=== PATIENT | female | born 1945 | race Asian ===

== ENCOUNTER → 2017-03-31 | Outpatient (CLI) | payer OTHER | LOC: BMCIMAGING 15:17 | PROVIDERS: ATTEND Internal Medicine | DX: M17.0 Bilateral primary osteoarthritis of knee (principal) ==

== ENCOUNTER → 2017-05-22 | Outpatient (CLI) | payer OTHER | LOC: BMCIMAGING 13:07 | PROVIDERS: ATTEND Internal Medicine | DX: N85.9 Noninflammatory disorder of uterus, unspecified (principal); Z78.0 Asymptomatic menopausal state; Z79.890 Hormone replacement therapy ==

== ENCOUNTER → 2017-09-07 | Outpatient (CLI) | payer OTHER | LOC: FIMAGING 09:28 | PROVIDERS: ATTEND Orthopaedic Surgery | DX: Z01.818 Encounter for other preprocedural examination (principal); M25.862 Other specified joint disorders, left knee; M25.762 Osteophyte, left knee ==

== ENCOUNTER 2017-10-12 06:01 | Observation (INO) | payer OTHER ==
[~2017-10-12 06:01] MED LIST: ROPIVACAINE 0.2% 80 MG, EPINEPHrine 0.2 MG, KETOROLAC TROMETHAMINE 30 MG, morphINE 10 M... IU ONE; TRANEXAMIC ACID 1,000 MG in NS 100 ML IV ONE
[2017-10-12] MEDS ORDERED: ceFAZolin 2 GM/DEXTROSE 100 ML IV ONE (06:18)
[2017-10-12] MEDS ORDERED: LIDOCAINE 1% 2 ML INJ ID PRN (06:18)
[2017-10-12] MEDS ORDERED: LR 1,000 ML IV ONE ×2 (06:18→06:23)
[2017-10-12] MEDS ORDERED: FAMOTIDINE 20 MG TAB PO ONE (06:18)
[2017-10-12] MEDS ORDERED: ACETAMINOPHEN 325 MG TAB PO ONE (06:18)
--- NOTE | 2017-10-12 06:27 | PDIAF ---
- Diagnosis Diagnosis: left knee djd Code Status: Full Code - Medication Management Discharge Medications: Medications to Continue on Transfer Atorvastatin Calcium [Lipitor 20 mg (*)] 20 mg PO DAILY@12 08/21/17 [Last Taken Unknown] Estradiol [Vivelle-Dot 0.025MG (*)] 0.025 mg TD WeSa@0800 08/21/17 [Last Taken Unknown] Herbals/Supplements -Info Only 1 ea PO DAILY 08/21/17 [Last Taken Unknown] Levothyroxine [Synthroid 50 mcg (*)] 50 mcg PO DAILY06 08/21/17 [Last Taken Unknown] Multivitamins [Multivitamin (*)] 1 each PO DAILY 08/21/17 [Last Taken Unknown] Discharge Medications: Refer to the Discharge Home Medication list for PRN reason. - Orders Services needed: Physical Therapy Diet Recommendation: no restrictions on diet Diet Texture: Regular Texture Diet Activity/Weight Bearing Restrictions: wbat. rom as vent[place]. keep dressing in place unless it becomes saturated. may shower with bandage. seek attn for increasing pain, chest pain, sob, leg pain, drainage or other focal complaint. f/u at two weeks Additional Instructions: TOTAL JOINT ARTHROPLASTY DISCHARGE INSTRUCTIONS 1. Your surgeon follows the [facility] protocol for reducing your risk of DVT (blood clots) following surgery. Medication will be ordered to prevent blood clots. A sudden increase in calf pain and/or swelling could indicate a blood clot in your leg. If this occurs, please call your surgeon or his/her registered medical assistant. An ultrasound of the leg may be necessary to diagnose a blood clot. If you have conditions that make you a higher risk for blood clots, your surgeon may use more aggressive ways to prevent them. Notify your surgeon if you think you are a high risk for blood clots. 2. Wear your white surgical stockings (DEMAR hose) for 2 weeks. This decreases your swelling and may help prevent blood clots. It is ok to remove DEMAR hose at night time to give your legs a break. 3. Swelling and bruising in the surgical leg is common. If you feel that it is excessive, please notify your surgeon. 4. Elevate your surgical leg with the ankle above the hip several times every day. Please keep the leg straight when you elevate by putting pillows under your foot. Do not put pillows under your knee. This will make being able to fully straighten more difficult. This is uncomfortable, but try to do it as much as possible. 5. For total knee replacements use compressive wrap on your knee for 3-5 days after surgery, then you can discontinue it. 6. Use a walker or crutches for 1-2 weeks. Progress your weight-bearing as tolerated. You may start to use a cane when you feel stable and safe. 7. You will receive physical therapy instructions in the hospital. Continue those exercises at home. There are additional exercises in the total joint booklet you were given before surgery. Outpatient physical therapy will begin 7- 10 days after surgery. Please schedule this in advance. 8. Use ice on your knee at least 3-5 times every day for 30 minutes. This helps reduce pain and swelling. Also use it at night before falling asleep. 9. Leave your surgical dressing in place for 2 weeks. Your dressing is water resistant, but not waterproof. Cover it with Saran Wrap or Hafbn-r-Xrah before showering. You may shower as soon as you feel safe entering a shower. If you notice bleeding from your incision 2 or 3 days after surgery, please notify your surgeon. 10. Due to narcotics, decreased activity and altered diet, most patients experience constipation after surgery. Use qqyh-wno-unmkvac stool softeners while you are on narcotics. 11. You may drive a car when you are comfortable bearing weight, have good muscular control of your leg and are off narcotics. This usually occurs 2-4 weeks after surgery, depending on which leg was operated on. 12. If there are questions not addressed here, please refer the [facility] book given for more information. If you still have questions, please contact your surgeon s office. 13. If you have a life-threatening emergency, please call 911 and go to the emergency room immediately. For non-life threatening emergencies, please call your physicians office for advice before going to the emergency room. - Follow Up Care Current Providers and Referrals: Dasia Khan MD [Primary Care Provider] - Samuel Gr MD [Medical Doctor] -
--- NOTE | 2017-10-12 06:27 | PDHPUP ---
History & Physical Update H&P update statement: This history and physical update is based on an assessment of the patient which was completed after admission or registration (within 24 hours), but prior to the surgery/procedure. H&P update: no change in patient's condition since H&P completed
[2017-10-12] MEDS ORDERED: CALCIUM CHLORIDE 1 GM/10 ML INJ ONE (07:03)
[2017-10-12] MEDS ORDERED: THROMBIN (BOVINE) 5,000 UNIT VIAL TP ONE (07:03)
[2017-10-12] MEDS ORDERED: ceFAZolin 1 GM/5 ML SYR ONE ×2 (07:04→07:15)
[2017-10-12] MEDS ORDERED: MIDAZOLAM 2 MG/2 ML VIAL IVP ONE (07:46)
[2017-10-12] MEDS ORDERED: MIDAZOLAM 2 MG/2 ML VIAL ONE (07:46)
--- NOTE | 2017-10-12 07:48 | PDANEPAE ---
ANE Past Medical History - Cardiovascular History Hx Hypertension: No Hx Arrhythmias: No Hx Chest Pain: No Hx Coronary Artery / Peripheral Vascular Disease: No Hx CHF / Valvular Disease: No Hx Palpitations: No - Pulmonary History Hx COPD: No Hx Asthma/Reactive Airway Disease: No Hx Recent Upper Respiratory Infection: No Hx Oxygen in Use at Home: No Hx Sleep Apnea: No Sleep Apnea Screening Result - Last Documented: Negative - Neurologic History Hx Cerebrovascular Accident: No Hx Seizures: No Hx Dementia: No - Endocrine History Hx Diabetes: No Obesity: no - Renal History Hx Renal Disorders: No - Liver History Hx Hepatic Disorders: No - Neurological & Psychiatric Hx Hx Neurological and Psychiatric Disorders: No - Cancer History Hx Cancer: No - Congenital Disorder History Hx Congenital Disorders: No - GI History Hx Gastrointestinal Disorders: No - Other Health History Other Health History: none - Chronic Pain History Chronic Pain: No - Surgical History Prior Surgeries: cataract left eye ANE Review of Systems Review of Systems: - Exercise capacity METS (RN): 4 METS ANE Patient History - Allergies Allergies/Adverse Reactions: Sulfa (Sulfonamide Antibiotics) Allergy (Verified 08/21/17 10:10) Rash - Home Medications Home Medications: Atorvastatin Calcium [Lipitor 20 mg (*)] 20 mg PO DAILY@12 08/21/17 [Last Taken 10/11/17] Estradiol [Vivelle-Dot 0.025MG (*)] 0.025 mg TD WeSa@0800 08/21/17 [Last Taken 10/09/17] Herbals/Supplements -Info Only 1 ea PO DAILY 08/21/17 [Last Taken 10/12/17] Levothyroxine [Synthroid 50 mcg (*)] 50 mcg PO DAILY06 08/21/17 [Last Taken ] Multivitamins [Multivitamin (*)] 1 each PO DAILY 08/21/17 [Last Taken 10/12/17] - NPO status NPO Status: no food or drink >8 hours NPO Since - Liquids (Date): 10/12/17 NPO Since - Liquids (Time): 05:00 NPO Since - Solids (Date): 10/11/17 NPO Since - Solids (Time): 18:00 - Anes Hx Anes Hx: no prior problems - Smoking Hx Smoking Status: Never smoked - Family Anes Hx Family Hx Anesthesia Complications: none ANE Labs/Vital Signs - Vital Signs Blood Pressure: 111/64 Heart Rate: 56 Respiratory Rate: 16 O2 Sat (%): 94 Height: 160.02 cm Weight: 58.967 kg ANE Physical Exam - Airway Neck exam: FROM Mallampati Score: Class 2 Mouth exam: normal dental/mouth exam - Pulmonary Pulmonary: no respiratory distress, no rales or rhonchi, clear to auscultation - Cardiovascular Cardiovascular: regular rate and rhythym, no murmur, rub, or gallop - ASA Status ASA Status: II ANE Anesthesia Plan Anesthesia Plan: spinal Regional Anesthesia: adductor canal FNB
[2017-10-12] MEDS ORDERED: BUPIVACAINE/EPI 0.5% 30 ML SDV ONE (08:00)
[2017-10-12] MEDS ORDERED: PROPOFOL 200 MG/20 ML VIAL ONE (08:01)
[2017-10-12] MEDS ORDERED: LIDOCAINE 2% 5 ML SDV ONE (08:03)
[2017-10-12] MEDS ORDERED: DEXAMETHASONE 4 MG/ML VIAL ONE ×2 (08:03)
[2017-10-12] MEDS ORDERED: fentaNYL 100 MCG/2 ML INJ ONE (08:37)
[2017-10-12] MEDS ORDERED: LIDOCAINE 2% JELLY 5 ML TUBE ONE (08:41)
[2017-10-12] MEDS ORDERED: ONDANSETRON 4 MG/2 ML VIAL ONE (08:53)
[2017-10-12] MEDS ORDERED: ONDANSETRON 4 MG/2 ML VIAL IVP PRN ×2 (09:18→09:55)
[2017-10-12] MEDS ORDERED: fentaNYL 100 MCG/2 ML INJ IVP PRN (09:18)
[2017-10-12] MEDS ORDERED: NALOXONE HCL 0.4 MG/ML INJ IVP PRN (09:18)
[2017-10-12] MEDS ORDERED: ACETAMINOPHEN 500 MG TAB PO PRN (09:18)
[2017-10-12] MEDS ORDERED: MEPERIDINE 25 MG/0.5 ML AMP IVP PRN (09:18)
[2017-10-12] MEDS ORDERED: LR 500 ML IV PRN (09:18)
[2017-10-12] MEDS ORDERED: oxyCODONE IR 5 MG TAB PO PRN ×2 (09:18→09:55)
[2017-10-12] MEDS ORDERED: PROMETHAZINE HCL 25 MG/ML INJ IVP PRN ×2 (09:18→09:55)
[2017-10-12] MEDS ORDERED: MAGNESIUM HYDROXIDE 30 ML UDCUP PO PRN (09:55)
[2017-10-12] MEDS ORDERED: DIPHENOXYLATE/ATROPINE LOMOTIL 1 TAB PO PRN (09:55)
[2017-10-12] MEDS ORDERED: LACTULOSE 20 GM/30 ML UDCUP PO PRN (09:55)
[2017-10-12] MEDS ORDERED: BISACODYL 10 MG SUPP PR PRN (09:55)
[2017-10-12] MEDS ORDERED: ONDANSETRON DISINTEGRATING 4 MG TAB PO PRN (09:55)
[2017-10-12] MEDS ORDERED: POLYETHYLENE GLYCOL 3350 17 GM PKT PO PRN (09:55)
[2017-10-12] MEDS ORDERED: PROMETHAZINE HCL 25 MG SUPPR PR PRN (09:55)
[2017-10-12] MEDS ORDERED: METOCLOPRAMIDE 10 MG/2 ML VIAL IVP PRN (09:55)
[2017-10-12] MEDS ORDERED: diphenhydrAMINE 25 MG CAP PO PRN (09:55)
[2017-10-12] MEDS ORDERED: TEMAZEPAM 15 MG CAP PO PRN (09:55)
[2017-10-12] MEDS ORDERED: CYCLOBENZAPRINE 10 MG TAB PO PRN (09:55)
--- NOTE | 2017-10-12 09:55 | POSTOPPROG ---
Post Op Note Date of Operation: 10/12/17 Surgeon: Samuel Gr Manufacturing Associate: tiffanie Anesthesiologist: shanthi Anesthesia: GET(General Endotracheal), Spinal Pre-op Diagnosis: left knee djd Post-op Diagnosis: same Indication: same Procedure: left tka Inf/Abcess present in the surg proc area at time of surgery?: No Depth: Deep Incisional (Fascial) EBL: 50-100
[2017-10-12] MEDS ORDERED: LR 1,000 ML IV SCH (10:00)
--- NOTE | 2017-10-12 10:49 | POSTANESTH ---
Post Anesthetic Evaluation Cardiovascular Status: Normal, Stable, Similar to Pre-Op Cond Respiratory Status: Normal, Stable, Similar to Pre-op Cond. Level of Consciousness/Mental Status: Can Participate in Eval, Alert and Oriented (No pain on arrival in PACU--apparently, SAB is working at least partially. Adductor canal nerve block performed in PACU.) Pain Control: Adequate, Prn Tx Ordered Nausea/Vomiting Control: Adequate, Prn Tx Ordered Complications Possibly Related to Anesthesia: None Noted
[2017-10-12] MEDS ORDERED: ATORVASTATIN CALCIUM 20 MG TAB PO SCH (12:00)
[2017-10-12] MEDS: TRANEXAMIC ACID 650 MG TAB PO SCH ×2 (12:29→17:39)
[2017-10-12] MEDS: ACETAMINOPHEN 325 MG TAB PO SCH ×3 (13:57→23:21)
[2017-10-12] MEDS: ceFAZolin 2 GM/DEXTROSE 100 ML IV SCH ×2 (13:59→21:31)
[2017-10-12] MEDS: ASPIRIN 325 MG TAB PO SCH (20:20)
[2017-10-12] MEDS: SENNOSIDES/DOCUSATE SODIUM TAB PO SCH (20:21)
[2017-10-12] MEDS: FAMOTIDINE 20 MG TAB PO SCH (20:21)
[2017-10-13] MEDS: TRANEXAMIC ACID 650 MG TAB PO SCH (02:33)
[2017-10-13] MEDS: ACETAMINOPHEN 325 MG TAB PO SCH ×2 (05:45→09:18)
[2017-10-13] MEDS ORDERED: LEVOTHYROXINE 50 MCG TAB PO SCH (06:00)
--- NOTE | 2017-10-13 07:16 | PDIAF ---
- Diagnosis Diagnosis: left knee djd Code Status: Full Code - Medication Management Discharge Medications: Medications to Continue on Transfer Atorvastatin Calcium [Lipitor 20 mg (*)] 20 mg PO DAILY@12 08/21/17 [Last Taken 10/11/17] Estradiol [Vivelle-Dot 0.025MG (*)] 0.025 mg TD WeSa@0800 08/21/17 [Last Taken 10/09/17] Herbals/Supplements -Info Only 1 ea PO DAILY 08/21/17 [Last Taken 10/12/17] Levothyroxine [Synthroid 50 mcg (*)] 50 mcg PO DAILY06 08/21/17 [Last Taken ] Multivitamins [Multivitamin (*)] 1 each PO DAILY 08/21/17 [Last Taken 10/12/17] Aspirin [Aspirin 325 mg (*)] 325 mg PO DAILY tab 10/13/17 [Last Taken Unknown] oxyCODONE IR [Oxycodone Ir (*)] 5 - 10 mg PO Q3HRS PRN #50 tab 10/13/17 [Last Taken Unknown] Discharge Medications: Refer to the Discharge Home Medication list for PRN reason. - Orders Services needed: Physical Therapy Diet Recommendation: no restrictions on diet Diet Texture: Regular Texture Diet Activity/Weight Bearing Restrictions: wbat. rom as [place]. keep dressing in place unless it becomes saturated. may shower with bandage. seek attn for increasing pain, chest pain, sob, leg pain, drainage or other focal complaint. f/u at two weeks Additional Instructions: TOTAL JOINT ARTHROPLASTY DISCHARGE INSTRUCTIONS 1. Your surgeon follows the [facility] protocol for reducing your risk of DVT (blood clots) following surgery. Medication will be ordered to prevent blood clots. A sudden increase in calf pain and/or swelling could indicate a blood clot in your leg. If this occurs, please call your surgeon or his/her academic support assistant. An ultrasound of the leg may be necessary to diagnose a blood clot. If you have conditions that make you a higher risk for blood clots, your surgeon may use more aggressive ways to prevent them. Notify your surgeon if you think you are a high risk for blood clots. 2. Wear your white surgical stockings (DEMAR hose) for 2 weeks. This decreases your swelling and may help prevent blood clots. It is ok to remove DEMAR hose at night time to give your legs a break. 3. Swelling and bruising in the surgical leg is common. If you feel that it is excessive, please notify your surgeon. 4. Elevate your surgical leg with the ankle above the hip several times every day. Please keep the leg straight when you elevate by putting pillows under your foot. Do not put pillows under your knee. This will make being able to fully straighten more difficult. This is uncomfortable, but try to do it as much as possible. 5. For total knee replacements use compressive wrap on your knee for 3-5 days after surgery, then you can discontinue it. 6. Use a walker or crutches for 1-2 weeks. Progress your weight-bearing as tolerated. You may start to use a cane when you feel stable and safe. 7. You will receive physical therapy instructions in the hospital. Continue those exercises at home. There are additional exercises in the total joint booklet you were given before surgery. Outpatient physical therapy will begin 7- 10 days after surgery. Please schedule this in advance. 8. Use ice on your knee at least 3-5 times every day for 30 minutes. This helps reduce pain and swelling. Also use it at night before falling asleep. 9. Leave your surgical dressing in place for 2 weeks. Your dressing is water resistant, but not waterproof. Cover it with Saran Wrap or Ikzce-k-Nexy before showering. You may shower as soon as you feel safe entering a shower. If you notice bleeding from your incision 2 or 3 days after surgery, please notify your surgeon. 10. Due to narcotics, decreased activity and altered diet, most patients experience constipation after surgery. Use jzdb-uts-dxrkhri stool softeners while you are on narcotics. 11. You may drive a car when you are comfortable bearing weight, have good muscular control of your leg and are off narcotics. This usually occurs 2-4 weeks after surgery, depending on which leg was operated on. 12. If there are questions not addressed here, please refer the [facility] book given for more information. If you still have questions, please contact your surgeon s office. 13. If you have a life-threatening emergency, please call 911 and go to the emergency room immediately. For non-life threatening emergencies, please call your physicians office for advice before going to the emergency room. - Follow Up Care Current Providers and Referrals: Dasia Khan MD [Primary Care Provider] - Samuel Gr MD [Medical Doctor] -
--- NOTE | 2017-10-13 07:18 | SOAPPROG ---
SOAP Progress Note Assessment/Plan: Assessment: s./p tka Plan:d/c home after pt dvt precautions reviewed no active issue 10/13/17 07:16 Subjective: min pain no cp or sob ventura po no n/v Objective: Vital Signs Temp Pulse Resp BP Pulse Ox 36.4 C 54 L 16 98/50 L 98 10/13/17 04:00 10/13/17 04:00 10/13/17 04:00 10/13/17 04:00 10/13/17 04:00 Laboratory Results 10/13/17 04:10 10/12/17 10/13/17 10/14/17 05:59 05:59 05:59 Intake Total 2850 Output Total 101 Balance 2749 dressing intact intact pf,df,ehl neg homans darlene no calf swellling or ttp xrays stable alignment no fx or lucency slight posterior tibial tray on xray ICD10 Worksheet Patient Problems: Problems Problem Status Onset Arthritis of knee Acute Knee pyogenic arthritis Acute - ICD10 Problem Qualifiers (1) Knee pyogenic arthritis (2) Arthritis of knee
[2017-10-13 07:23] VITALS: BP 102/56
[2017-10-13] MEDS: SENNOSIDES/DOCUSATE SODIUM TAB PO SCH (09:18)
[2017-10-13] MEDS: FAMOTIDINE 20 MG TAB PO SCH (09:23)
[2017-10-13] MEDS: ASPIRIN 325 MG TAB PO SCH (09:23)
[2017-10-13] MEDS ORDERED: ATORVASTATIN CALCIUM 20 MG TAB PO SCH (12:00)
--- NOTE | 2017-10-13 12:10 | ASMTCMCOM ---
CM Note CM Note Notes: Pt medically stable for d/c with [facility] PT. Orders to be obtained via [employer]. Date Signed: 10/13/2017 12:10 PM Electronically Signed By:SAWYER White
--- NOTE | 2017-10-13 12:13 | ASDISCHSUM ---
Discharge Information Plan Status:Home with Home Health Medically Cleared to Leave: Discharge Date:10/13/2017 10:41 AM CM D/C Disposition:Home Health Service ADT D/C Disposition:Home Health Service Projected Discharge Date:10/13/2017 11:00 AM Transportation at D/C:Family Discharge Delay Reason: Follow-Up Date:10/13/2017 11:00 AM Discharge Slot: Final Diagnosis: Placement Information Referral Type:*Home Health Care Services Referral ID:[id number] Provider Name:[facility] Address 1:[address] [place] [address] Address 2: City:[place] Selection Factors: State:[place] Patient Contact Information Contact Name:FITO Relationship:Other Address: Work Phone: City: [facility] Phone: [facility] Code: Email: Financial Information Financial Class:Medicare Primary Plan Desc:MEDICARE OUTPATIENT Primary Plan Number:[id number] Secondary Plan Desc: Secondary Plan Number:[id number] Assessment Information [facility] CM Progress Note CM Note CM Note Notes: Pt medically stable for d/c with [facility] PT. Orders to be obtained via [employer]. Date Signed: 10/13/2017 12:10 PM Electronically Signed By:SAWYER White LACE LACE Length of stay for Answers: 1 day current admission Acuity / Level of Answers: No Care: Did the patient have an inpatient admission? Comorbidities - select Answers: Other Notes: high all that apply cholesterol, hypothyroi dis m # of Emergency department Answers: 0 visits in the last 6 months Score: 2 Date Signed: 10/13/2017 12:12 PM Electronically Signed By:SAWYER White Intervention Information
--- NOTE | 2017-10-14 07:39 | GOP ---
[f rep st] OPERATIVE REPORT DATE OF OPERATION: SURGEON: Samuel Gr MD DITCHING MACHINE OPERATOR: Yovanny Dinh, RESTROOMS OR LOUNGES MAID, FISHER NET, internal medicine physician assistant whose medical necessity for the entirety of the case preop. PREOPERATIVE DIAGNOSIS: Left knee degenerative joint disease. POSTOPERATIVE DIAGNOSIS: Left knee degenerative joint disease. PROCEDURE PERFORMED: Total knee arthroplasty, MAKOplasty. FINDINGS: SPECIMENS: Pathology, the bony cuts. DESCRIPTION OF PROCEDURE: The patient was identified in the preanesthesia area. The left knee clear ly demarcated as the operative site with indelible marker. She was given 2 g of Ancef intravenously en route to the operative suite. In the OR a spinal anesthetic was placed followed by IV sedation. She was positioned in the supine position. All bony prominences were well padded. Attention was tur julián to the left knee and lower extremity which was sterilely prepped and draped in usual fashion. Ap propriate time-out procedure was carried out. The limb was exsanguinated Esmarch bandage. Tournique t inflated to 275 mmHg. Standard anterior midline incision was made. Thick subcutaneous flaps were elevated followed by medial parapatellar arthrotomy. There was arthritic change as outlined above. Decision was made to proceed with total knee replacement. A separate percutaneous incision was made over the mid tibia. Two pins were then placed and the tibial reference array affixed. Two pins were placed through the medial aspect of the wound at the distal femur and the femoral reference array af fixed. Femoral and tibial check points were placed. All bony landmarks were then entered into the c omputer in standard fashion. The marginal osteophytes were withdrawn, the knee was taken through fle xion extension and balanced with soft tissue releases, and manipulation of the software components. Using the MAKOplasty robot a resection was made for a size 3 tibia, size 3 femur. Trial reduction wa s carried out and ultimately a 3 x 13 mm thick tibial plastic insert was then selected. The trial co mponents were withdrawn and the tibia was press fit. The femur was press fit and the 3 x 13 polyethy kierra spacer was then placed and confirmed to be fully seated. This allowed full extension of the kne e in neutral limb alignment. There was no varus valgus instability through the flexion-extension arc . The patella was then everted, cut in a freehand cutting technique. Drill holes made for a size 29 pa tella and a 29 metal-backed patella was then press fit into appropriate position. A small lateral re lease was performed to facilitate centralized tracking of the knee through flexion-extension arc. Th e wound was then copiously irrigated with pulsatile lavage. The soft tissue injected with a joint co cktail of ropivacaine, morphine, Toradol, and epinephrine. The medial parapatellar arthrotomy closed using #1 Ethibond suture. The subcutaneous tissue closed using 2-0 Monocryl and the skin was staple d. Sterile dressing was applied. The patient was awakened, extubated and taken to the recovery room in good stable condition. OPERATIVE INDICATIONS: The patient is a 72-year-old woman with end-stage arthritis to the lateral gr eater than medial aspect of her knee. She also has advanced arthritis to the patellofemoral joint. Given her age, persistent symptoms, failure with conservative measures I have recommended operative i ntervention. I have outlined the surgical procedure, risks, benefits, and alternatives. She wished to proceed. Written consent was signed and placed in the patient's chart. TOTAL TOURNIQUET TIME: 70 minutes. COMPLICATIONS: None. IMPLANTS: The Giovanna triathlon knee posterior stabilized femoral component size 3, size 3 tibia, 3 x 13 mm polyethylene spacer and 29 mm asymmetric poly. The patient was awakened and taken to recover y room in good stable condition. Total tourniquet time as above. DISPOSITION: To the recovery room and then the floor. She is weightbearing range of motion as miguel ated and will follow standard recovery. /[id number]/MODL
[2017-10-14] MEDS ORDERED: ESTRADIOL VIVELLE 0.025 MG PATCH TD SCH (08:00)
--- NOTE | 2017-10-14 08:14 | GDS ---
[f rep st] DISCHARGE SUMMARY ADMISSION DIAGNOSIS: Left knee degenerative joint disease. DISCHARGE DIAGNOSIS: Left knee degenerative joint disease. PROCEDURE: Left total knee arthroplasty. HISTORY OF PRESENT ILLNESS: The patient is a 72-year-old woman with end-stage arthritis to her knee. She presents for elective total knee replacement. HOSPITAL COURSE: The patient was admitted to the hospital floor after uncomplicated total knee repla cement. She tolerated the procedure well. She had no complications overnight. At the time of disch arge, she is tolerating an oral diet. Pain is well controlled on oral medicines. She is voiding and stooling without difficulty. Dressing is clean, dry, and intact. She has no calf swelling or tende rness. Negative Homans. X-rays are stable with no fracture or malalignment. She has been cleared b y Physical Therapy. DISCHARGE ACTIVITY: Weightbearing as tolerated. Range of motion as tolerated. Keep the dressing on . May shower with the dressing. FOLLOWUP: Followup in 2 weeks. Seek attention for increasing redness, swelling, drainage, discharge . DISCHARGE MEDICATIONS: Oxycodone 5 mg 1-2 every 6 hours p.r.n. pain and aspirin 325 mg p.o. daily fo r 6 weeks. /[id number]/MODL
== END 2017-10-13 10:41 | disposition home health service (06) ==
LOC: F3N 06:01 → INTOOBSV 06:01 → F3N 11:54
PROVIDERS: ADMIT Orthopaedic Surgery; ATTEND Orthopaedic Surgery
PROC: 0SRD0JZ Replacement of Left Knee Joint with Synthetic Substitute, Open Approach (ICD-10-PCS; principal; 2017-10-12 08:00)
DX: M17.12 Unilateral primary osteoarthritis, left knee (principal); E78.00 Pure hypercholesterolemia, unspecified; Z79.890 Hormone replacement therapy
CPT/HCPCS: 27447; 73560; 88311; 97110; 97116; 97161; 97165; 97530; C1776; G8978; G8979; G8980; G8987; G8988; G8989; J0171; J0690; J1100; J1885; J2250; J2270; J2405; J2704; J2795; J3010

== ENCOUNTER → 2018-01-07 | Outpatient (CLI) | payer OTHER | LOC: BMCIMAGING 08:33 → EDSTATUS 08:33 → BMCIMAGING 08:34 | PROVIDERS: ATTEND Orthopaedic Surgery | DX: Z47.1 Aftercare following joint replacement surgery (principal); Z96.652 Presence of left artificial knee joint ==

== ENCOUNTER → 2018-04-07 | Outpatient (CLI) | payer OTHER | LOC: BMCIMAGING 07:20 | PROVIDERS: ATTEND Internal Medicine | DX: Z12.31 Encounter for screening mammogram for malignant neoplasm of breast (principal) ==

== ENCOUNTER → 2018-04-07 | Outpatient (CLI) | payer OTHER | LOC: BMCIMAGING 08:11 | PROVIDERS: ATTEND Orthopaedic Surgery | DX: Z47.1 Aftercare following joint replacement surgery (principal); Z96.652 Presence of left artificial knee joint ==

== ENCOUNTER → 2018-05-10 | Outpatient (CLI) | payer OTHER | LOC: BMCIMAGING 12:06 | PROVIDERS: ATTEND Family Medicine | DX: S82.432A Displaced oblique fracture of shaft of left fibula, initial encounter for closed fracture (principal) ==

== ENCOUNTER → 2018-05-24 | Outpatient (CLI) | payer OTHER | LOC: BMCIMAGING 14:01 | PROVIDERS: ATTEND Podiatrist Foot & Ankle Surgery | DX: S82.832D Other fracture of upper and lower end of left fibula, subsequent encounter for closed fracture with routine healing (principal) ==

== ENCOUNTER → 2018-06-07 | Outpatient (CLI) | payer OTHER | LOC: BMCIMAGING 14:29 | PROVIDERS: ATTEND Podiatrist Foot & Ankle Surgery | DX: S82.832D Other fracture of upper and lower end of left fibula, subsequent encounter for closed fracture with routine healing (principal) ==

== ENCOUNTER → 2018-10-13 | Outpatient (CLI) | payer OTHER | LOC: BMCIMAGING 08:00 ==